=== PATIENT | male | born 1980 | race Caucasian/White ===

== ENCOUNTER 2019-01-22 07:50 | Inpatient (IN) | payer OTHER ==
[~2019-01-22] VITALS: Ht 160 cm; Wt 68.2 kg
[2019-01-22] VITALS (12 sets, daily range): BP systolic 124–165; BP diastolic 81–104
--- NOTE | 2019-01-22 07:54 | NUR ---
ED Nurse Note: Pt brought in by ambulance from his friend's house due to ALOC for an hour prior ED arrival. Pt's friend states that he took poppers and THC last night. EMS came and found the pt unresponsive and staring blankly. Pt came in awake but with flat affect, not following commands. Skin is warm to touch. No respiratory distress. Sinus tachycardic on the monitor 115-120.
--- NOTE | 2019-01-22 08:07 | Emergency Room Report ---
History of Present Illness General Chief Complaint: Altered Mental Status Source: Patient, EMS Present Illness HPI Patient 38-year-old male brought in by EMS after increased altered mental status. Patient reportedly had been smoking marijuana as well as taking amyl nitrate. Patient had acute onset of alteration of his mental status. Patient was noted to be acutely more confused. He has unknown past medical history. He had one prior ED visit with diagnosis of amphetamine abuse. Allergies: Coded Allergies: No Known Allergies (Unverified , 04/22/15) UNABLE TO ASSESS (Unverified , 01/22/19) Patient History Past Medical History: see triage record Reviewed Nursing Documentation: PMH: Agreed; PSxH: Agreed Nursing Documentation-PMH Past Medical History Deferred: Pt Cognitively Impaired Physical Exam Vital Signs Date Time Temp Pulse Resp B/P (MAP) Pulse Ox O2 Delivery O2 Flow Rate FiO2 01/22/19 07:44 98.1 114 16 136/82 98 Room Air General Appearance: moderate distress Head: normocephalic Eyes: bilateral eye other - bilateral pupillary dilation ENT: moist mucus membranes Neck: full range of motion, supple Respiratory: chest non-tender, lungs clear Cardiovascular #1: tachycardia Gastrointestinal: normal bowel sounds, non tender, soft Musculoskeletal: back normal, other - muscular rigidity with increased tone Neurologic: normal inspection, alert, oriented x3, responsive, back end developer III-XII nml as tested Psychiatric: other - eyes open Skin: normal inspection, normal color, no rash Medical Decision Making Diagnostic Impression: Primary Impression: Amphetamine and psychostimulant abuse Additional Impressions: Serotonin syndrome Rhabdomyolysis Muscle rigidity Febrile illness ER Course Patient presented for altered mental status. Differential diagnosis include was not limited to intracranial hemorrhage, CVA, medication overdose, drug abuse among others. Because of complexity of patient's case laboratory testing and imaging studies were ordered. Urinalysis showed some evidence of urinary infection. Patient was given IV Rocephin. Patient was noted to have continued altered mental status. He was given IV Ativan and Benadryl due to muscle rigidity. This may have been due to a dystonic reaction vs a toxic ingestion. He was started on IV fluids at high rate due to muscle rigidity and spasms. Dr. Deon Weinstein was contacted for inpatient management. Labs Test 01/22/19 08:20 01/22/19 08:24 White Blood Count 9.1 K/UL (4.8-10.8) Red Blood Count 4.95 M/UL (4.70-6.10) Hemoglobin 14.1 G/DL (14.2-18.0) Hematocrit 43.3 % (42.0-52.0) Mean Corpuscular Volume 87 FL (80-99) Mean Corpuscular Hemoglobin 28.5 PG (27.0-31.0) Mean Corpuscular Hemoglobin Concent 32.5 G/DL (32.0-36.0) Red Cell Distribution Width 14.4 % (11.6-14.8) Platelet Count 360 K/UL (150-450) Mean Platelet Volume 5.3 FL (6.5-10.1) Neutrophils (%) (Auto) 69.8 % (45.0-75.0) Lymphocytes (%) (Auto) 21.6 % (20.0-45.0) Monocytes (%) (Auto) 8.1 % (1.0-10.0) Eosinophils (%) (Auto) 0.1 % (0.0-3.0) Basophils (%) (Auto) 0.5 % (0.0-2.0) Prothrombin Time 10.3 SEC (9.30-11.50) Prothromb Time International Ratio 1.0 (0.9-1.1) Activated Partial Thromboplast Time 26 SEC (23-33) Urine Color Pale yellow Urine Appearance Clear Urine pH 6 (4.5-8.0) Urine Specific [place] 1.020 (1.005-1.035) Urine Protein Negative (NEGATIVE) Urine Glucose (UA) Negative (NEGATIVE) Urine Ketones 3+ (NEGATIVE) Urine Blood 3+ (NEGATIVE) Urine Nitrite Negative (NEGATIVE) Urine Bilirubin Negative (NEGATIVE) Urine Urobilinogen Normal MG/DL (0.0-1.0) Urine Leukocyte Esterase 2+ (NEGATIVE) Urine RBC 2-4 /HPF (0 - 0) Urine WBC 15-20 /HPF (0 - 0) Urine Squamous Epithelial Cells Occasional /LPF Urine Bacteria Few /HPF (NONE) Sodium Level 143 MMOL/L (136-145) Potassium Level 4.0 MMOL/L (3.5-5.1) Chloride Level 106 MMOL/L (98-107) Carbon Dioxide Level 25 MMOL/L (21-32) Anion Gap 12 mmol/L (5-15) Blood Urea Nitrogen 14 mg/dL (7-18) Creatinine 1.2 MG/DL (0.55-1.30) Estimat Glomerular Filtration Rate > 60 mL/min (>60) Glucose Level 94 MG/DL (74-106) Calcium Level 9.8 MG/DL (8.5-10.1) Total Bilirubin 1.0 MG/DL (0.2-1.0) Aspartate Amino Transf (AST/SGOT) 51 U/L (15-37) Alanine Aminotransferase (ALT/SGPT) 44 U/L (12-78) Alkaline Phosphatase 85 U/L (46-116) Troponin I 0.000 ng/mL (0.000-0.056) Total Protein 8.0 G/DL (6.4-8.2) Albumin 4.1 G/DL (3.4-5.0) Globulin 3.9 g/dL Albumin/Globulin Ratio 1.1 (1.0-2.7) Thyroid Stimulating Hormone (TSH) 2.651 uiU/mL (0.358-3.740) Arterial Blood pH 7.442 (7.350-7.450) Arterial Blood Partial Pressure CO2 34.6 mmHg (35.0-45.0) Arterial Blood Partial Pressure O2 81.5 mmHg (75.0-100.0) Arterial Blood HCO3 23.1 mmol/L (22.0-26.0) Arterial Blood Oxygen Saturation 94.9 % (95-100) Arterial Blood Base Excess -0.4 (-2-2) Curt Test Positive EKG Diagnostic Results Rate: tachycardiac Rhythm: NSR ST Segments: no acute changes Last Vital Signs Date Time Temp Pulse Resp B/P (MAP) Pulse Ox O2 Delivery O2 Flow Rate FiO2 01/22/19 07:44 98.1 114 16 136/82 98 Room Air Status: improved Disposition: ADMITTED INPATIENT Condition: Critical Corona Mariee MD Jan 22, 2019 08:07
[2019-01-22] MEDS ORDERED: LORazepam Inj 2mg/ml 1ml IV ONE ×3 (08:15→13:30)
--- NOTE | 2019-01-22 08:25 | NUR ---
ED Nurse Note: RT at the bed side for ABG draw.
--- NOTE | 2019-01-22 08:30 | NUR ---
ED Nurse Note: Collected blood and sent.
--- NOTE | 2019-01-22 08:39 | NUR ---
ED Nurse Note: Urine specimen sent.
[2019-01-22 08:52] LABS: APPEARANCE,URINE CLEAR; BILIRUBIN, URINE NEGATIVE (NEGATIVE); COLOR,URINE PALE YELLOW; GLUCOSE, URINE (UA) NEGATIVE (NEGATIVE); KETONES,URINE 3+ (NEGATIVE); LEUKOCYTE ESTERASE ,URINE 2+ (NEGATIVE); NITRITE,URINE NEGATIVE (NEGATIVE); PH,URINE 6 (4.5-8.0); PROTEIN,URINE NEGATIVE (NEGATIVE); UROBILINOGEN,URINE NORMAL MG/DL (0.0-1.0)
[2019-01-22 08:53] LABS: BASOPHILS % (AUTO) 0.5 % (0.0-2.0); EOSINOPHILS % (AUTO) 0.1 % (0.0-3.0); HEMATOCRIT 43.3 % (42.0-52.0); HEMOGLOBIN 14.1 G/DL (14.2-18.0); LYMPHOCYTES % (AUTO) 21.6 % (20.0-45.0); MEAN CORPUSCULAR VOLUME 87 FL (80-99); MONOCYTES % (AUTO) 8.1 % (1.0-10.0); NEUTROPHILS % (AUTO) 69.8 % (45.0-75.0); PLATELET COUNT 360 K/UL (150-450); RED BLOOD COUNT 4.95 M/UL (4.70-6.10); RED CELL DISTRIBUTION WIDTH 14.4 % (11.6-14.8); WHITE BLOOD COUNT 9.1 K/UL (4.8-10.8)
[2019-01-22 09:00] LABS: ANION GAP 12 mmol/L (5-15); BLOOD UREA NITROGEN 14 mg/dL (7-18); CALCIUM 9.8 MG/DL (8.5-10.1); CARBON DIOXIDE 25 MMOL/L (21-32); CHLORIDE 106 MMOL/L (98-107); CREATININE 1.2 MG/DL (0.55-1.30); SODIUM 143 MMOL/L (136-145)
[2019-01-22 09:13] LABS: ALANINE AMINOTRANSFERASE 44 U/L (12-78); ALBUMIN 4.1 G/DL (3.4-5.0); ALBUMIN/GLOBULIN RATIO 1.1 (1.0-2.7); ALKALINE PHOSPHATASE 85 U/L (46-116); ASPARTATE AMINO TRANSFERASE 51 U/L (15-37)
[2019-01-22] MEDS ORDERED: cefTRIAXone 1 GM in NS 55 ML IVPB ONE (09:15)
--- NOTE | 2019-01-22 09:28 | Diagnostic Imaging Report ---
EXAM: CT Head Without Intravenous Contrast CLINICAL HISTORY: AMS TECHNIQUE: Axial computed tomography images of the head/brain without intravenous contrast. CTDI is 70.38 mGy and DLP is 1383 mGy-cm. One or more of the following dose reduction techniques were used: automated exposure control, adjustment of the mA and/or kV according to patient size, use of iterative reconstruction technique. COMPARISON: No relevant prior studies available. FINDINGS: Brain: Unremarkable. No hemorrhage. No significant white matter disease. No edema. Ventricles: Unremarkable. No ventriculomegaly. Bones/joints: Unremarkable. No acute fracture. Soft tissues: Unremarkable. Sinuses: Unremarkable as visualized. No acute sinusitis. Mastoid air cells: Unremarkable as visualized. No mastoid effusion. IMPRESSION: Normal head/brain CT.
--- NOTE | 2019-01-22 09:30 | NUR ---
ED Nurse Note: Noted muscular rigidity on upper and lower extremities. No respiratory distress. Dr Kodi kwong.
--- NOTE | 2019-01-22 09:35 | NUR ---
ED Nurse Note: Called lab and spoken to Alexia about added order of drug screen urine.
--- NOTE | 2019-01-22 10:08 | NUR ---
ED Nurse Note: Patient is awake but still not answering questions being asked to him. Still sinus tach on cardiac nurse specialist 130. No respiratory distress.
--- NOTE | 2019-01-22 11:55 | NUR ---
ED Nurse Note: Called lab to ff up with CK add on order.
[2019-01-22 12:19] LABS: CREATINE KINASE 1144 U/L (26-308)
--- NOTE | 2019-01-22 13:24 | NUR ---
ED Nurse Note: Dr Mariee notified of rectal temp of 101.3 F
[2019-01-22] MEDS ORDERED: Acetaminophen 650 MG SUPP RECTAL ONE (13:30)
[2019-01-22] MEDS ORDERED: DiphenhydrAMINE 50mg/ml Inj IVP ONE (13:45)
--- NOTE | 2019-01-22 14:22 | Diagnostic Imaging Report ---
EXAM: XR Chest, 1 View CLINICAL HISTORY: SOB TECHNIQUE: Frontal view of the chest. COMPARISON: No relevant prior studies available. FINDINGS: Lungs: Hypoventilatory lungs. Bibasilar lung atelectasis. Pleural space: Unremarkable. No pneumothorax. Heart: Unremarkable. No cardiomegaly. Mediastinum: Unremarkable. Bones/joints: Unremarkable. Upper abdomen: Gassy bowel in the upper abdomen. 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 IMPRESSION: 1. Hypoventilatory lungs. Bibasilar lung atelectasis. 2. Gassy bowel in the upper abdomen. 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
--- NOTE | 2019-01-22 15:16 | NUR ---
HAND-OFF: Report given to Noemi MUNSON.
--- NOTE | 2019-01-22 15:18 | NUR ---
ED Nurse Note: received report from RN alli Nieto cont monitor. pt currently awake but nonverbal, sinus tach on personnel monitor. afebrile.
--- NOTE | 2019-01-22 15:45 | NUR ---
ED Nurse Note: pt now more alert, pt cleaned and changed, pt able to speak couple sentences and able to follow easy commands.
--- NOTE | 2019-01-22 16:25 | NUR ---
ED Nurse Note: receiving rn currently unavailable per charge nurse statement, states will call back.
--- NOTE | 2019-01-22 16:55 | NUR ---
ED Nurse Note: report given to JEIMY Wynn from ICU, per charge nurse statement, will transfer pt to floor in 10min. pt AA&ox3, gcs=15, skin warm and mild moist, resp even and unlabored on RA, sinus tach, afebrile at this time, will cont monitor.
[2019-01-22] MEDS ORDERED: LORazepam Inj 2mg/ml 1ml IV PRN (18:15)
--- NOTE | 2019-01-22 19:05 | NUR ---
NURSE NOTES: RECEIVED PATIENT FROM JEIMY MACDONALD.
--- NOTE | 2019-01-22 19:15 | NUR ---
NURSE NOTES: PATIENT ALERT, ORIENTED X2, DISORIENTATION TO TIME AND SITUATION, DENIED SUICIDAL IDEATION AT THIS TIME, RESPIRATION REGULAR, [place] 22-26/MIN ON ROOM AIR, O2 SATURATION OVER 95%, NO COUGH SIGN OR SOB NOTED, ABDOMEN SOFT, NON TENDER, NO N/V NOTED, NO BLADDER DISTENTION STATUS, REMOVED PERIPHERAL LINE STATUS, GIVEN REORIENTATION, MADE LOWER BED POSITION, PROVIDED CALL LIGHT, WILL CONTINUE TO MONITOR.
[2019-01-22] MEDS: D5NS 1,000 ML IV SCH (19:49)
--- NOTE | 2019-01-22 19:50 | Pulmonolgy Critical Care Note ---
Critical Care - Asmt/Plan Assessment/Plan: History and Physical HPI Patient 38-year-old male brought in by EMS after increased altered mental status. Patient reportedly had been smoking marijuana, Methamphetamine as well as taking amyl nitrate. Patient had acute onset of alteration of his mental status. Noted to be febrile in the ED, no seizures noted Allergies: No Known Allergies PMH: None ROS: Negative aside from above Physical Exam Vital Signs Noted Date Time Temp Pulse Resp B/P (MAP) Pulse Ox O2 Delivery O2 Flow Rate FiO2 01/22/19 07:44 98.1 114 16 136/82 98 Room Air Eyes: bilateral eye other - bilateral pupillary dilation Neck: full range of motion, supple Respiratory: chest non-tender, lungs clear Cardiovascular: HS1, HS2, RRR, tachycardia Gastrointestinal: normal bowel sounds, non tender, soft Musculoskeletal: normal inspection, back normal Neurologic: normal inspection, alert, oriented x3, responsive, lumber planer III-XII nml as tested, normal power, no seizures Skin: normal inspection, normal color, no rash Impression: Amphetamine and psychostimulant abuse AMS Fever Plan Observe in ICU IVF Sedation PRN Broad spectrum antibiotics Await cultures PPX O2 PRN Monitor labs Labs Test 01/22/19 08:20 01/22/19 08:24 White Blood Count 9.1 K/UL (4.8-10.8) Red Blood Count 4.95 M/UL (4.70-6.10) Hemoglobin 14.1 G/DL (14.2-18.0) Hematocrit 43.3 % (42.0-52.0) Mean Corpuscular Volume 87 FL (80-99) Mean Corpuscular Hemoglobin 28.5 PG (27.0-31.0) Mean Corpuscular Hemoglobin Concent 32.5 G/DL (32.0-36.0) Red Cell Distribution Width 14.4 % (11.6-14.8) Platelet Count 360 K/UL (150-450) Mean Platelet Volume 5.3 FL (6.5-10.1) Neutrophils (%) (Auto) 69.8 % (45.0-75.0) Lymphocytes (%) (Auto) 21.6 % (20.0-45.0) Monocytes (%) (Auto) 8.1 % (1.0-10.0) Eosinophils (%) (Auto) 0.1 % (0.0-3.0) Basophils (%) (Auto) 0.5 % (0.0-2.0) Prothrombin Time 10.3 SEC (9.30-11.50) Prothromb Time International Ratio 1.0 (0.9-1.1) Activated Partial Thromboplast Time 26 SEC (23-33) Urine Color Pale yellow Urine Appearance Clear Urine pH 6 (4.5-8.0) Urine Specific [place] 1.020 (1.005-1.035) Urine Protein Negative (NEGATIVE) Urine Glucose (UA) Negative (NEGATIVE) Urine Ketones 3+ (NEGATIVE) Urine Blood 3+ (NEGATIVE) Urine Nitrite Negative (NEGATIVE) Urine Bilirubin Negative (NEGATIVE) Urine Urobilinogen Normal MG/DL (0.0-1.0) Urine Leukocyte Esterase 2+ (NEGATIVE) Urine RBC 2-4 /HPF (0 - 0) Urine WBC 15-20 /HPF (0 - 0) Urine Squamous Epithelial Cells Occasional /LPF Urine Bacteria Few /HPF (NONE) Sodium Level 143 MMOL/L (136-145) Potassium Level 4.0 MMOL/L (3.5-5.1) Chloride Level 106 MMOL/L (98-107) Carbon Dioxide Level 25 MMOL/L (21-32) Anion Gap 12 mmol/L (5-15) Blood Urea Nitrogen 14 mg/dL (7-18) Creatinine 1.2 MG/DL (0.55-1.30) Estimat Glomerular Filtration Rate > 60 mL/min (>60) Glucose Level 94 MG/DL (74-106) Calcium Level 9.8 MG/DL (8.5-10.1) Total Bilirubin 1.0 MG/DL (0.2-1.0) Aspartate Amino Transf (AST/SGOT) 51 U/L (15-37) Alanine Aminotransferase (ALT/SGPT) 44 U/L (12-78) Alkaline Phosphatase 85 U/L (46-116) Troponin I 0.000 ng/mL (0.000-0.056) Total Protein 8.0 G/DL (6.4-8.2) Albumin 4.1 G/DL (3.4-5.0) Globulin 3.9 g/dL Albumin/Globulin Ratio 1.1 (1.0-2.7) Thyroid Stimulating Hormone (TSH) 2.651 uiU/mL (0.358-3.740) Arterial Blood pH 7.442 (7.350-7.450) Arterial Blood Partial Pressure CO2 34.6 mmHg (35.0-45.0) Arterial Blood Partial Pressure O2 81.5 mmHg (75.0-100.0) Arterial Blood HCO3 23.1 mmol/L (22.0-26.0) Arterial Blood Oxygen Saturation 94.9 % (95-100) Arterial Blood Base Excess -0.4 (-2-2) Curt Test Positive Critical Care - Objective Last 24 Hour Vital Signs Date Time Temp Pulse Resp B/P (MAP) Pulse Ox O2 Delivery O2 Flow Rate FiO2 01/22/19 18:00 99.3 132 16 129/96 (107) 94 01/22/19 16:07 98.7 130 20 133/86 100 Room Air 01/22/19 15:07 138 24 Room Air 01/22/19 15:07 98.7 134 20 165/104 100 Room Air 01/22/19 15:00 98.7 01/22/19 13:23 101.3 140 24 140/98 100 Room Air 01/22/19 11:59 99.0 135 22 147/89 98 Room Air 01/22/19 10:00 99.0 130 23 138/89 95 Room Air 01/22/19 07:54 98.1 116 22 139/93 100 Room Air 01/22/19 07:54 116 22 Room Air 01/22/19 07:44 98.1 114 16 136/82 98 Room Air Accucheck: 94 Critical Care - Subjective ROS Limited/Unobtainable: No Condition: improving IV Access: peripheral EKG Rhythm: Sinus Rhythm Inder Gutierrez MD Jan 22, 2019 19:50
[2019-01-22] MEDS ORDERED: Vancomycin 1.5gm Premix IVPB ONE (20:00)
--- NOTE | 2019-01-22 20:20 | NUR ---
NURSE NOTES: PATIENT HAS HAD SOME MEDICATION,3 KINDS OF CAPSULES (15 EA) AND 4 KINDS OF TABLET (17 EA) WITHOUT LABEL THAT PATIENT CAN NOT RECALL MEDICATIONS NAME AND CONFUSED MED LIST AT THIS TIME. INFORMED THE PATIENT REGARDING HOSPITAL POLICY THAT WILL SEND MEDS TO HOSPITAL PHARMACY, WILL BE RETURN BEFORE DISCHARGE. BUT PATIENT STRONGLY REFUSED AND WANT TO KEEP MED IN HIS BACK PACK AT THIS TIME. REPORTED THE CHARGE NURSE AND WILL CONTINUE TO MONITOR.
[2019-01-22] MEDS: NovoLOG Insulin Flexpen SUBQ SCH (21:00)
[2019-01-22] MEDS ORDERED: Heparin 5000 units/ml inj SUBQ SCH (21:00)
--- NOTE | 2019-01-22 23:30 | NUR ---
NURSE NOTES: PATIENT CALM, STAYED BED, NO PAIN OR DISTRESS NOTED AT THIS TIME.
[2019-01-22] MEDS: Ampicillin 1 GM in NS 55 ML IVPB SCH (23:38)
[2019-01-23] VITALS (9 sets, daily range): BP systolic 126–189; BP diastolic 80–129
--- NOTE | 2019-01-23 00:40 | NUR ---
NURSE NOTES: GIVEN ATIVAN 0.5MG BY IVP SLOWLY PRN FOR ANXIOUS, WILL CONTINUE TO MONITOR.
--- NOTE | 2019-01-23 02:10 | NUR ---
NURSE NOTES: PATIENT WATCHING TV IN BED, NO PAIN OR DISTRESS NOTED.
[2019-01-23] MEDS: D5NS 1,000 ML IV SCH (03:14)
--- NOTE | 2019-01-23 04:30 | NUR ---
NURSE NOTES: PATIENT TRIED TO OUT OF BED WITHOUT CALL LIGHT, GIVEN REORIENTATION, WILL CONTINUE PLAN OF CARE.
[2019-01-23] MEDS: Ampicillin 1 GM in NS 55 ML IVPB SCH (05:42)
--- NOTE | 2019-01-23 05:50 | NUR ---
NURSE NOTES: PATIENT WANTED TO CHANGE CHUX BY HIMSELF THAT ASSISTED AND MORNING CARE WAS DONE, NO BOWEL MOVEMENT, VOIDED STATUS, ENCOURAGED TO USE URINAL AND PROVIDED WITHIN REACH, WILL CONTINUE TO MONITOR.
[2019-01-23] MEDS: NovoLOG Insulin Flexpen SUBQ SCH (06:30)
[2019-01-23 06:31] LABS: BASOPHILS % (AUTO) 0.8 % (0.0-2.0); EOSINOPHILS % (AUTO) 1.4 % (0.0-3.0); HEMATOCRIT 38.7 % (42.0-52.0); HEMOGLOBIN 12.9 G/DL (14.2-18.0); LYMPHOCYTES % (AUTO) 28.9 % (20.0-45.0); MEAN CORPUSCULAR VOLUME 86 FL (80-99); MONOCYTES % (AUTO) 8.6 % (1.0-10.0); NEUTROPHILS % (AUTO) 60.3 % (45.0-75.0); PLATELET COUNT 335 K/UL (150-450); RED BLOOD COUNT 4.49 M/UL (4.70-6.10); WHITE BLOOD COUNT 7.5 K/UL (4.8-10.8)
[2019-01-23 06:56] LABS: ANION GAP 10 mmol/L (5-15); BLOOD UREA NITROGEN 8 mg/dL (7-18); CALCIUM 8.7 MG/DL (8.5-10.1); CARBON DIOXIDE 25 MMOL/L (21-32); CHLORIDE 105 MMOL/L (98-107); CREATINE KINASE 894 U/L (26-308); POTASSIUM 3.2 MMOL/L (3.5-5.1); SODIUM 140 MMOL/L (136-145)
--- NOTE | 2019-01-23 07:15 | NUR ---
HAND-OFF: Report given to aravind ngo and reported pt's medication,money total $96 ($20x4, $10x1, [id number]) and beloingings.
--- NOTE | 2019-01-23 07:45 | NUR ---
NURSE NOTES: Received the patient from JEIMY Calvillo. Patient is awake, alert and oriented, verbally responsive, resting in bed comfortably. On room air, O2 sat 98%. No acute distress noted. ST HR 116 noted on the conveyor monitor. No c/o pain at this time. Patient is able to use urinal. Right hand 20G intact and patent, running D5NS at 125ml/hr. Bed in lowest position, locked, side rails upx2. Call light within reach. Bed alarm on. Will continue to monitor.
[2019-01-23] MEDS ORDERED: Vancomycin 1gm/D5W 275ml IVPB SCH ×2 (08:00)
[2019-01-23] MEDS ORDERED: D5NS 1000ml IV ONE (08:44)
[2019-01-23] MEDS ORDERED: Tubing IV Secondary IV ONE (08:44)
[2019-01-23] MEDS ORDERED: NS 275ml ONE (08:44)
--- NOTE | 2019-01-23 08:50 | NUR ---
NURSE NOTES: Removed IV lines and monitor. All belongings given to the patient. PMD made aware of AMA.
--- NOTE | 2019-01-23 08:50 | NUR ---
AMA: SEE AMA FORM. Patient called on the call button while already getting dressed. Patient was anxious and wanting to leave AMA. Stated "I want to go home." Patient appears upset, anxious and restless. generator mechanic asked if reason for leaving was to use again and patient stated "no", "I am angry at myself for doing that but I don't want to talk about that." generator mechanic then asked if patient was depressed, patient responded with "yes, a little." Patient VS HR 112, BP 189/113 SPO2 93%. generator mechanic stated that patient was hypertensive and asked if at least could we give him something for his blood pressure and he refused several times. generator mechanic explained all of the risks of being hypertensive to include stroke. Patient stated that he understood and still wanted to go home. Patient stated that he "wanted to go home, get something to eat and go to sleep." Patient stated that he would sign the form. generator mechanic called Dr Gutierrez and reviewed the patient's lab results. Patient then signed the form and was already dressed at this time with his belongs collected and ready to leave. Patient then left immediately.
[2019-01-23] MEDS ORDERED: Pantoprazole Inj IVP SCH (09:00)
[2019-01-23] MEDS ORDERED: cefTRIAXone 1gm/D5W 55ml IVPB SCH ×2 (09:00)
--- NOTE | 2019-01-25 11:16 | Discharge Summary ---
Discharge Summary Discharge Summary _ DATE OF ADMISSION: 01/22/2019 DATE OF DISCHARGE: 01/23/2019 Patient left AGAINST MEDICAL ADVICE REASON FOR ADMISSION: 38 years old male with unknown past medical history , was brought by yard manager for altered mental status. Patient apparently was smoking marijuana and was using amphetamine as well as taking amyl nitrate. No seizures noted. In emergency room patient was initially afebrile, tachycardic, pulse oximetry was stable on room air. In few hours he developed fever of 101.3. Urine toxicology screen was positive for amphetamine. Urinalysis revealed evidence of pyuria hematuria hematuria. Chemistry revealed mild elevation in AST. CK 1144. Troponin negative. EKG revealed normal sinus rhythm. No acute ischemic changes. ABG on room air was stable. No leukocytosis, stable hemoglobin and hematocrit. CT of the head revealed no acute intracranial pathology. Chest x-ray demonstrated bibasilar lung atelectasis. 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 In ED patient received Ativan and Benadryl secondary to muscle rigidity. Patient started on IV fluids and given empiric antibiotic for UTI. Patient was admitted for further management. HOSPITAL COURSE: Patient was admitted to ICU. Patient provided with vigorous IV hydration with close monitoring of electrolytes, renal parameters and CK. Sedation provided as needed. Patient pancultured and started on broad-spectrum antibiotic. Supplemental oxygen provided as needed to keep pulse oximetry above 92% Patient started on GI prophylaxis. Laboratory workup next day still revealed no leukocytosis, hemoglobin down to 12.9. Potassium 3.2, which was replaced. CK trending down -894. No further fevers. Patient became more alert and wanted to leave AGAINST MEDICAL ADVICE. The risks and consequences of signing AGAINST MEDICAL ADVICE were discussed with patient in detail. Patient verbalized understanding, nevertheless signed AMA form and left. FINAL DIAGNOSES: Amphetamine and psychostimulant abuse Rhabdomyolysis Fever I have been assigned to dictate discharge summary for this account. I was not involved in the patient's management. Nadia Puckett NP Jan 25, 2019 11:16
== END 2019-01-23 08:45 | disposition left against medical advice (07) | DRG 770 ==
LOC: EDBD 07:50 → EMR 08:29 → EDBEDREQ 13:26 → EDBEDREQSVC 13:26 → EDBEDREQ 15:43 → ICU 15:49
DX: F15.10 Other stimulant abuse, uncomplicated (principal); M62.82 Rhabdomyolysis; F19.10 Other psychoactive substance abuse, uncomplicated; R50.9 Fever, unspecified
CPT/HCPCS: 36415; 36600; 70450; 71045; 80048; 80053; 80307; 81001; 82550; 82803; 82962; 84443; 84484; 85025; 85610; 85730; 87081; 87086; 87181; 93005; 96361; 96365; 96368; 96375; 96376; 99285; J1815